=== PATIENT | female | born 1980 | race Caucasian/White ===

== ENCOUNTER 2024-05-30 15:24 | Emergency (ER) | payer OTHER, MEDICAID ==
[~2024-05-30] VITALS: Ht 175.3 cm; Wt 73.0 kg
[2024-05-30 16:12] VITALS: BP 130/70; PULSE 87; RESP 18; TEMP 98.6; O2SAT 98
--- NOTE | 2024-05-30 16:21 | ED.PDOC ---
HPI Comments Pleasant 44-year-old female presents for laceration to the 5th finger while using a kitchen knife. Hemostasis obtained. No other complaint or concern. Last Tdap on now but patient declines update Chief Complaint: Laceration Time Seen by MD: 15:59 Primary Care Provider: MICK Campuzano Notes: Nurses Notes, Medications, Allergies Allergies: Coded Allergies: NO KNOWN ALLERGIES (Unverified , 05/30/24) Information Source: Patient Mode of Arrival: Ambulatory Complexity: Simple Laceration Location: Digit #5 Mechanism: Knife Laceration Length (cm): 2 Skin Type: Linear Depth of Injury: Skin Tendon Injury: 0% Capillary Refill: < 3 seconds Tender: Mild Discharge: None Erythema: None Associated Signs and Symptoms: None Past Medical History PAST MEDICAL HISTORY: Denies Surgical History: Denies all surgeries 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 All Other Systems: Reviewed and Negative (Per HPI) Physical Exam General Appearance: No Apparent Distress, Normal HEENT: Normal ENT Inspection, Pharynx Normal, TMs Normal Neck: Full Range of Motion, Non-Tender, Normal, Normal Inspection Respiratory: Chest Non-Tender, Lungs Clear, No Accessory Muscle Use, No Respiratory Distress, Normal Breath Sounds Cardiovascular: No Edema, No JVD, No Murmur, No Gallop, Normal Peripheral Pulses, Regular Rate/Rhythm Breast Exam: Deferred Gastrointestinal: No Organomegaly, Non Tender, No Pulsatile Mass, Normal Bowel Sounds, Soft Genitalia: Deferred Pelvic: Deferred Rectal: Deferred Extremities: No calf tenderness, Normal capillary refill, Normal inspection, Normal range of motion, Non-tender, No pedal edema Musculoskeletal : Apperance: Normal Neurologic: Alert, ventilated rib fitter II-XII nml as Tested, No Motor Deficits, Normal Affect, Normal Mood, No Sensory Deficits Cerebellar Function: Normal Reflexes: Normal Skin: Dry, Normal Color, Warm Lymphatic: No Adenopathy Was a procedure done? Was a procedure done?: Yes Sedation Sedation?: No Laceration Repair : Location 5th finger Length 2 Laceration Repair Prep: Saline, Betadine Laceration Repair Wound Comple: epidermis/dermis repair Laceration Repair: Dermabond, Non-adherent gauze Informed consent obtained: Yes Risks, benefits, and alternati: Yes Differential diagnosis Generic Laceration: Laceration X-Ray, Labs, Meds, VS Vital Signs Date Time Temp Pulse Resp B/P (MAP) Pulse Ox O2 Delivery O2 Flow Rate FiO2 05/30/24 16:12 87 18 98 Room Air 05/30/24 16:12 98.6 88 18 130/70 (90) 98 98.6 05/30/24 15:45 98.7 87 18 139/71 (93) 98 X-Ray, Labs, Meds, VS Comment The laceration was prepped in sterile fashion with sterile drapes On examination under direct light, there was no foreign body seen The laceration was repaired w/ dermabond There were no complications related to repair Declined tetanus update Education and follow-up instructions provided Wound check in 2 days Return sooner for signs of infection such as fevers, increased pain, redness, green, yellow discharge, or any concerns Keep wound dry for 24 to 48 hours; dry dressing may be changed Protect from sunlight and keep area clean and dry. Use soap and water if it gets dirty High risk of possible scarring and education provided on ways to minimize scarring after wound heals Also provided education on possible complications post procedure including wound dehiscence, infection, etc. Time of 1ST Reevaluation: 16:19 Reevaluation 1ST: Improved Patient Education/Counseling: Diagnosis, Treatment Family Education/Counseling: Diagnosis, Treatment Departure 1 Departure Time of Disposition: 16:20 Impression: Primary Impression: Laceration Disposition: 01 HOME / SELF CARE / HOMELESS Condition: Stable Discharged With: Self Critical Care Note Critical Care Time?: No Stability Stability form required: No Heart Score Heart Score: Heart Score Response (Comments) Value History N/A 0 EKG N/A 0 Age N/A 0 Risk Factors N/A 0 Troponin N/A 0 Total 0 SANJUANA DIEGO NP May 30, 2024 16:21
== END 2024-05-30 16:29 | disposition home or self-care (01) ==
LOC: ER 15:24
DX: S61.218A Laceration without foreign body of other finger without damage to nail, initial encounter (principal); W26.0XXA Contact with knife, initial encounter; Y93.89 Activity, other specified; Y92.89 Other specified places as the place of occurrence of the external cause; Y99.8 Other external cause status
CPT/HCPCS: 12001